=== PATIENT | female | born 1965 ===

== ENCOUNTER 2022-02-03 15:04 | Outpatient (CLI) | payer MEDICAID, SELFPAY ==
--- NOTE | 2022-02-03 15:00 | CRLHL7_ITS ---
For Patients: As a result of the Century Cures Act, medical imaging exams and procedure reports are released immediately into your electronic medical record. You may view this report before your referring provider. If you have questions, please contact your health care provider. DXA BONE MINERAL DENSITY STUDY Current height (in): 64. Weight (lb): 140 Menopause age: 50. Ethnicity: white. 1. Have you had a previous hip or vertebral fracture? No. 2. Have you had any fractures during your adult life which did not result from significant trauma (e.g., auto accident)? No. 3. Did either of your parents have a hip fracture? No. 4. Do you smoke? Yes. 5. Have you ever taken Glucocorticoids? Yes. 6. Do you have rheumatoid arthritis? No. 7. Do you have secondary osteoporosis? No. 8. Do you drink 3 or more alcoholic drinks per day? No. 9. Are you being treated for osteoporosis? No. 10. Have you ever taken any of the following medications: Actonel, Evista, Fosamax, Miacalcin, Reclast, Boniva, Forteo, HRT (i.e. estrogen/hormone therapy), Protelos, Prolia, Vitamin D, Calcium, other ??? please specify. ANSWER: Yes, vitamin D, calcium. 11. Do you have any of the following medical conditions: Anorexia or bulimia, asthma or emphysema, end stage renal disease, hyperparathyroidism, any seizure disorders, cancer, inflammatory bowel diseases, hysterectomy, other ??? please specify. ANSWER: No. 12. What was your maximum height (inches)? 64. 13. Do you perform weight bearing exercise regularly? No. 14. Do you regularly consume dairy products? Yes. 15. Do you drink caffeinated beverages? Yes. 16. At what age did your period start? 13. 17. Are you premenopausal? No. 18. How many full term pregnancies have you had? 2. 19. Have you ever missed your period for more than 6 months in a row (not including or menopause)? No. TECHNIQUE: Bone mineral density study was performed using the [employer]. FINDINGS: The results of the study expressed as bone mineral density (BMD) are as follows: Lumbar spine L1 to L4: BMD: 0.949 g/cm2. T-score: -0.9. Z-score: 0.3. Neck Left: BMD: 0.729 g/cm2. T-score: -1.1. Z-score: 0.0. Right: BMD: 0.756 g/cm2. T-score: -0.8. Z-score: 0.3. Total Left: BMD: 0.858 g/cm2. T-score: -0.7. Z-score: 0.1. Right: BMD: 0.848 g/cm2. T-score: -0.8. Z-score: -0.0. IMPRESSION: Osteopenia. FRAX 10-year Fracture Risk Major Osteoporotic Fracture: 9.9 percent Hip Fracture: 1.1percent Reported Risk Factors: [place] () Neck BMD = 0.729, BMI = 24.0, smoking, glucocorticoids Alonso Vora M.D. Diagnostic/Nuclear Medicine Radiologist [email or web address] PARVIZ/Dictated by: Alonso Vora MD @ 02/04/2022 11:16:00 AM (Electronically Signed)
== END 2022-02-03 15:05 | disposition home or self-care (01) ==
LOC: MAMMO 15:06
PROVIDERS: Visit Provider Emergency Medicine
DX: M81.8 Other osteoporosis without current pathological fracture (principal); M85.89 Other specified disorders of bone density and structure, multiple sites
CPT/HCPCS: 77080

== ENCOUNTER 2022-04-29 14:26 | Outpatient (CLI) | payer MEDICAID, SELFPAY ==
--- NOTE | 2022-04-29 14:40 | CRLHL7_ITS ---
For Patients: As a result of the Cures Act, medical imaging exams and procedure reports are released immediately into your electronic medical record. You may view this report before your referring provider. If you have questions, please contact your health care provider. BILATERAL SCREENING MAMMOGRAM WITH COMPUTER-AIDED DETECTION AND TOMOSYNTHESIS TECHNIQUE: CC, MLO and Implant displaced views were obtained. These mammographic images have been obtained using full-field digital technique. These mammographic images were interpreted with the benefit of computer-aided detection. Breast Tomosynthesis was used in this interpretation. COMPARISON FILM: No comparison available. FINDINGS: The breasts are heterogeneously dense, which may obscure small masses IMPRESSION: There is no radiographic evidence for malignancy. ASSESSMENT: BI-RADS Category 2: Benign RECOMMENDATION: Routine screening mammogram in 1 year. A lay language report of this examination will be provided to the patient. Harsh Mcleod M.D. Diagnostic Radiologist [email or web address] WILLIAN/rudy / be/Dictated by: Harsh Mcleod MD @ 05/10/2022 9:35:00 AM (Electronically Signed)
== END 2022-04-29 14:27 | disposition home or self-care (01) ==
PROVIDERS: PCP Emergency Medicine; Visit Provider Emergency Medicine
DX: Z12.31 Encounter for screening mammogram for malignant neoplasm of breast (principal)
CPT/HCPCS: 77063; 77067

== ENCOUNTER 2022-10-07 15:20 | Outpatient (CLI) | payer MEDICAID, SELFPAY | END 2022-10-07 15:21 | disposition home or self-care (01) | PROVIDERS: PCP Emergency Medicine; Visit Provider Emergency Medicine | DX: R10.9 Unspecified abdominal pain (principal) | CPT/HCPCS: 80048; 80076; 83690 ==